=== PATIENT | female | born 1955 | race Caucasian/White ===

== ENCOUNTER 2018-02-09 11:00 | Emergency (ER) | payer OTHER ==
[~2018-02-09] VITALS: Ht 162.6 cm; Wt 48.4 kg
[2018-02-09 11:03] VITALS: BP 120/71
== END 2018-02-09 12:32 ==
LOC: ED 12:12
DX: M25.562 Pain in left knee (principal); M79.662 Pain in left lower leg; M19.90 Unspecified osteoarthritis, unspecified site
CPT/HCPCS: 99283

== ENCOUNTER → 2018-03-15 | Outpatient (CLI) | payer OTHER | END | disposition home or self-care (01) | LOC: CFH 07:11 | PROVIDERS: ATTEND Nurse Practitioner Primary Care | DX: M71.22 Synovial cyst of popliteal space [Baker], left knee (principal); M17.12 Unilateral primary osteoarthritis, left knee; M25.462 Effusion, left knee; M25.862 Other specified joint disorders, left knee ==

== ENCOUNTER → 2018-05-02 | Outpatient (CLI) | payer OTHER | END | disposition home or self-care (01) | LOC: CFH 11:09 | PROVIDERS: ATTEND Nurse Practitioner Primary Care | DX: M25.461 Effusion, right knee (principal); M25.551 Pain in right hip; M25.562 Pain in left knee; E78.2 Mixed hyperlipidemia; F06.31 Mood disorder due to known physiological condition with depressive features; Z72.0 Tobacco use ==

== ENCOUNTER → 2018-08-16 | Outpatient (CLI) | payer MEDICARE, OTHER | END | disposition home or self-care (01) | LOC: CFH 14:41 | PROVIDERS: ATTEND Internal Medicine | DX: Z13.820 Encounter for screening for osteoporosis (principal); M81.0 Age-related osteoporosis without current pathological fracture | CPT/HCPCS: 77080 ==

== ENCOUNTER 2019-10-08 09:32 | Inpatient (IN) | payer MEDICARE, OTHER ==
[~2019-10-08] VITALS: Ht 165.1 cm; Wt 51.0 kg
[2019-10-08] MEDS ORDERED: NEOSPORIN OINT. PKT 1 PACKET ONE (09:53)
--- NOTE | 2019-10-08 10:00 | NUR ---
PT CAME IN AFTER TAKING A GLF WHILE PLAYING PICKLE BALL. PICKLE BALL, IS A SMALLER VERSION OF TENNIS. PT WAS RUNNING FOR A BALL AND TRIPPED. PT DENIES HITTING HER HEAD OR LOC. PT STATES HER BIGGEST COMPLAINT IS THE PAIN IN HER RIGHT HIP. PT WAS ABLE TO GET FROM WHEELCHAIR TO BED WITH ASSISTANCE. PT IS ACCOMPANIED BY . RESTING IN RNEY. CONNECTED TO MONITORING EQUIPMENT.
[2019-10-08] MEDS ORDERED: MORPHINE SULFATE 4 MG/ML, 1ML IVPush PRN (10:30)
[2019-10-08 10:51] LABS: MEAN CORPUSCULAR HEMOGLOBIN 30.4 pg (27.0-34.8); MEAN CORPUSCULAR HGB CONC 31.9 g/dL (32.4-35.8); MEAN PLATELET VOLUME 7.2 fL (7.4-10.4); PLATELET COUNT 364 x10^3/uL (130-400); RED BLOOD COUNT 4.48 x10^6/uL (3.82-5.3); RED CELL DISTRIBUTION WIDTH 14.2 % (9.6-15.2)
[2019-10-08 11:00] LABS: INTERNATIONAL NORMALIZED RATIO 0.96 (0.93-1.1); PROTHROMBIN TIME 10.2 Seconds (9.6-11.5)
[2019-10-08 11:01] LABS: ALBUMIN 3.2 g/dL (3.4-5.0); ANION GAP 5 mmol/L (5-15); CALCIUM 9.3 mg/dL (8.5-10.1); CHLORIDE 108 mmol/L (98-107); CREATININE 0.84 mg/dL (0.55-1.02)
[2019-10-08] MEDS ORDERED: HUMIRA (11:17)
--- NOTE | 2019-10-08 11:18 | NUR ---
PT STATES SHE LAST ATE OR DRANK ANYTHING AT 830 AND SHE ONLY HAD COFFEE.
[2019-10-08 11:29] LABS: BASOPHILS # (AUTO) 0.05 x10^3/uL (0-0.1); BASOPHILS % (AUTO) 0 % (0-1); EOSINOPHILS # (AUTO) 0.04 x10^3/uL (0-0.4); EOSINOPHILS % (AUTO) 0 % (1-7); LYMPHOCYTES # (AUTO) 2.63 x10^3/uL (1-3.4); LYMPHOCYTES % (AUTO) 17 % (22-44); MD SCAN; MONOCYTES # (AUTO) 0.71 x10^3/uL (0.2-0.8); MONOCYTES % (AUTO) 5 % (2-9); NEUTROPHILS # (AUTO) 12.21 x10^3/uL (1.8-6.8); NEUTROPHILS % (AUTO) 78 % (42-75)
[2019-10-08] MEDS ORDERED: SODIUM CHLORIDE FLUSH 10ML SYR IVF ONE (11:30)
[2019-10-08 12:00] VITALS: BP 166/91
[2019-10-08] MEDS ORDERED: ACETAMINOPHEN 325 MG TABLET PO PRN ×2 (13:30→16:30)
[2019-10-08] MEDS ORDERED: PROMETHAZINE 25 MG/ML, 1ML IM PRN (13:30)
[2019-10-08] MEDS: HEPARIN 5,000 UNITS/ML, 1ML SQ SCH (13:30)
[2019-10-08] MEDS ORDERED: ONDANSETRON 2MG/ML, 2ML IVPush PRN ×2 (13:30→16:30)
[2019-10-08] MEDS ORDERED: LABETALOL 5MG/ML, 20ML IVPush PRN (13:30)
[2019-10-08] MEDS ORDERED: hydrALAzine 20 MG/ML, 1ML IVPush PRN (13:30)
[2019-10-08] MEDS ORDERED: morphine SULFATE 10 MG/ML, 1ML IVPush PRN (13:30)
[2019-10-08] MEDS: SODIUM CHLORIDE 0.9% 1,000 ML IV SCH ×2 (13:48→23:01)
[2019-10-08 15:30] VITALS: BP 136/78
[2019-10-08] MEDS ORDERED: LACTATED RINGERS 1,000 ML IV SCH (15:42)
[2019-10-08] MEDS ORDERED: CHLORHEXIDINE 15 ML UDC MM ONE (16:00)
[2019-10-08] MEDS ORDERED: BUPIVACAINE/PF 0.5% ONE (16:24)
[2019-10-08] MEDS ORDERED: FENTANYL PF 250 MCG/5ML ONE (16:26)
[2019-10-08] MEDS ORDERED: MIDAZOLAM 1 MG/ML, 2ML ONE (16:26)
[2019-10-08] MEDS ORDERED: hydrALAzine 20 MG/ML, 1ML IV PRN (16:30)
[2019-10-08] MEDS ORDERED: EPHEDRINE 50 MG/ML, 1ML IVPush PRN (16:30)
[2019-10-08] MEDS ORDERED: PROMETHAZINE 25 MG/ML, 1ML IVPush PRN (16:30)
[2019-10-08] MEDS ORDERED: HYDROmorphone 1 MG/ML, 1ML INJ IVPush PRN (16:30)
[2019-10-08] MEDS ORDERED: FENTANYL PF 100 MCG/2ML IV PRN (16:30)
[2019-10-08] MEDS ORDERED: OXYcodone 5 MG/5 ML ORAL.SOL UDC PO PRN (16:30)
[2019-10-08] MEDS ORDERED: LABETALOL 5MG/ML, 20ML IV PRN (16:30)
[2019-10-08] MEDS ORDERED: MEPERIDINE/PF 25MG/0.5ML IVPush PRN (16:30)
[2019-10-08] MEDS ORDERED: ACETAMINOPHEN 500 MG TABLET PO ONE (17:00)
[2019-10-08] MEDS ORDERED: EPHEDRINE 50 MG/ML, 1ML ONE (17:05)
[2019-10-08] MEDS ORDERED: LIDOCAINE-MPF 2% ,5ML ONE (17:19)
[2019-10-08] MEDS ORDERED: KETOROLAC 30 MG/1 ML ONE (17:19)
[2019-10-08] MEDS ORDERED: DEXAMETHASONE 4 MG/ML, 1ML ONE (17:21)
[2019-10-08] MEDS ORDERED: ONDANSETRON 2MG/ML, 2ML ONE (17:21)
[2019-10-08] MEDS ORDERED: PROPOFOL 10 MG/ML, 20ML ONE (17:21)
[2019-10-08] MEDS ORDERED: CEFAZOLIN 1,000 MG ONE (17:21)
[2019-10-08 21:10] VITALS: BP 128/77
[2019-10-09] MEDS: HEPARIN 5,000 UNITS/ML, 1ML SQ SCH ×2 (00:51→08:37)
[2019-10-09] MEDS: OXYcodone/APAP 5/325MG TABLET PO PRN ×3 (00:52→12:39)
[2019-10-09] MEDS: CEFAZOLIN PMX 2GM/50ML 50 ML IVPB SCH ×2 (00:52→08:35)
[2019-10-09 04:01] VITALS: BP 108/63
[2019-10-09 05:22] LABS: MEAN CORPUSCULAR HEMOGLOBIN 30.6 pg (27.0-34.8); MEAN CORPUSCULAR HGB CONC 32.3 g/dL (32.4-35.8); PLATELET COUNT 311 x10^3/uL (130-400); RED BLOOD COUNT 3.85 x10^6/uL (3.82-5.3); RED CELL DISTRIBUTION WIDTH 14.1 % (9.6-15.2)
[2019-10-09 05:24] LABS: ALBUMIN 2.7 g/dL (3.4-5.0); ANION GAP 6 mmol/L (5-15); CALCIUM 8.6 mg/dL (8.5-10.1); CHLORIDE 104 mmol/L (98-107)
[2019-10-09 05:29] LABS: ALANINE AMINOTRANSFERASE 24 U/L (12-78); ALKALINE PHOSPHATASE 99 U/L (45-117); BILIRUBIN,TOTAL 0.3 mg/dL (0.2-1.0); CREATININE 0.91 mg/dL (0.55-1.02); TOTAL PROTEIN 7.4 g/dL (6.4-8.2)
[2019-10-09 05:56] LABS: BASOPHILS # (AUTO) 0.01 x10^3/uL (0-0.1); BASOPHILS % (AUTO) 0 % (0-1); EOSINOPHILS % (AUTO) 0 % (1-7); LYMPHOCYTES # (AUTO) 1.18 x10^3/uL (1-3.4); LYMPHOCYTES % (AUTO) 11 % (22-44); MD SCAN; MONOCYTES # (AUTO) 0.17 x10^3/uL (0.2-0.8); MONOCYTES % (AUTO) 2 % (2-9); NEUTROPHILS # (AUTO) 9.57 x10^3/uL (1.8-6.8); NEUTROPHILS % (AUTO) 88 % (42-75)
[2019-10-09 06:54] VITALS: BP 111/67
[2019-10-09] MEDS: SODIUM CHLORIDE 0.9% 1,000 ML IV SCH (08:37)
[2019-10-09] MEDS ORDERED: OXYC-302 PO (10:56)
[2019-10-09] MEDS ORDERED: ASPI-650 PO (10:56)
[2019-10-09 12:36] VITALS: BP 115/70
== END 2019-10-09 13:08 | disposition home health service (06) | DRG 481 ==
LOC: ED 10:34 → EDIP 10:35 → ED 10:35 → 4NE 10:54 → OR 10:54 → 4NE 11:30 → DCLOUNGE 10-09 12:50
PROVIDERS: ADMIT Internal Medicine; ATTEND Internal Medicine
PROC: 0QS604Z Reposition Right Upper Femur with Internal Fixation Device, Open Approach (ICD-10-PCS; principal; 2019-10-09)
DX: S72.001A Fracture of unspecified part of neck of right femur, initial encounter for closed fracture (principal); E87.1 Hypo-osmolality and hyponatremia; M06.9 Rheumatoid arthritis, unspecified; W01.0XXA Fall on same level from slipping, tripping and stumbling without subsequent striking against object, initial encounter; D72.829 Elevated white blood cell count, unspecified; Y93.89 Activity, other specified; Y92.89 Other specified places as the place of occurrence of the external cause; Y99.8 Other external cause status; Y93.73 Activity, racquet and hand sports; Z82.49 Family history of ischemic heart disease and other diseases of the circulatory system; Z20.828 Contact with and (suspected) exposure to other viral communicable diseases
CPT/HCPCS: 36415; 71045; 76000; 80048; 80053; 82040; 82306; 85025; 85610; 87635; 93005; C1713; G0378; J0690; J1100; J1644; J1885; J2250; J2405; J2704; J3010; C1769; J2270; J7030; J7120